=== PATIENT | male | born 1945 | race Caucasian/White ===

== ENCOUNTER 2019-09-25 09:51 | Emergency (ER) | payer MEDICARE, OTHER ==
[~2019-09-25] VITALS: Ht 170.2 cm; Wt 59.4 kg
[~2019-09-25 09:51] MED LIST: FLOMAX0.4 MG PO; MEROPENEM500 MG IV; NOVOLIN 70100 UNITS/ SQ; PLAVIX75 MG PO; PROZAC20 MG PO; VANCOMYCIN500 MG/100 IV
[2019-09-25] MEDS ORDERED: DEXTROSE 50% SYRINGE 50 ML IV STA (10:19)
[2019-09-25 10:44] LABS: BASOPHILS % 0.2 % (0.0-1.0); EOSINOPHILS # (AUTO) 0.1 (0.0-0.4); EOSINOPHILS % 1.2 % (0.0-6.0); HEMATOCRIT 46.2 % (38.2-49.6); HEMOGLOBIN 15.3 g/dL (14.0-18.0); LYMPHOCYTES % 20.7 % (18.0-39.1); MEAN CORPUSCULAR HEMOGLOBIN 32.1 pg (28-32); MEAN CORPUSCULAR HGB CONC 33.1 g/dL (31-35); MEAN CORPUSCULAR VOLUME 97.1 fL (81-99); MONOCYTES # (AUTO) 0.5 (0.2-0.8); MONOCYTES % 10.5 % (4.4-11.3); NEUTROPHILS # (AUTO) 3.3 (2.1-6.9); NEUTROPHILS % 67.2 % (38.7-80.0); PLATELET COUNT 109 x10e3/uL (140-360); RED BLOOD COUNT 4.76 x10e6/uL (4.3-5.7); RED CELL DISTRIBUTION WIDTH 13.1 % (11.7-14.4)
--- NOTE | 2019-09-25 10:49 | NUR ---
After drinking orange juice, eating tyshawn crackers and an amp of d50, the patient has a bed side glucose of 212.
[2019-09-25 11:11] LABS: ALBUMIN 3.3 g/dL (3.5-5.0); ALBUMIN/GLOBULIN RATIO 0.7 (0.8-2.0); ANION GAP 15.9 mmol/L (8-16); CALCIUM 9.3 mg/dL (8.4-10.2); CREATININE, SERUM 1.63 mg/dL (0.72-1.25); POTASSIUM 3.9 mmol/L (3.5-5.1)
[2019-09-25 11:32] LABS: PLATELET MORPHOLOGY COMMENT NORMAL
[2019-09-25 11:33] LABS: PLATELET ESTIMATE SLIGHTLY DECREASED
--- NOTE | 2019-09-25 11:37 | NUR ---
received report from off going nurse. patient in room in bed. awake and alert. on isolation for possible bed bug infestation
== END 2019-09-25 13:55 | disposition home or self-care (01) ==
LOC: ER 09:51
DX: E11.649 Type 2 diabetes mellitus with hypoglycemia without coma (principal); Z86.73 Personal history of transient ischemic attack (TIA), and cerebral infarction without residual deficits; Z85.05 Personal history of malignant neoplasm of liver
CPT/HCPCS: 36415; 80053; 82550; 82553; 82948; 84484; 85025; 99284; J7799